=== PATIENT | female | born 1975 | race Caucasian/White ===

== ENCOUNTER 2019-01-05 11:59 | Inpatient (IN) | payer MEDICAID ==
[~2019-01-05] VITALS: Ht 152.4 cm; Wt 55.8 kg
--- NOTE | 2019-01-05 12:35 | NUR ---
URINE HCG (-), URINE DIP (+) BUT MAY INACCURATE D/T BLOOD STAINING/DISCOLORATION OF TEST STRIPS.
--- NOTE | 2019-01-05 12:40 | NUR ---
MSE BY DR. STAUFFER. PT C/O FEVER/BODY ACHES X 2 DAYS. PRODUCTIVE COUGH WHITE SPUTUM X 3 DAYS. PT C/O GENERALIZED ABD PAIN RADIATING TO BACK W/ NAUSEA SINCE MONDAY. PT W/ VAGINAL BLEEDING SINCE 12/21, WENT TO [facility] FOR SAME. PT C/O DIZZINESS X 3 DAYS. PT ADMITS TO OCCAS DYSURIA. PT IS PALE.
--- NOTE | 2019-01-05 12:55 | NUR ---
XRAY AT BEDSIDE
[2019-01-05 13:01] LABS: PLATELET COUNT 356 x10^3mcL (130-400)
[2019-01-05 13:03] LABS: RED CELL DISTRIBUTION WIDTH 21.1 % (11.5-14.5)
[2019-01-05 13:17] LABS: CALCIUM 7.8 mg/dL (8.5-10.1); CARBON DIOXIDE 20.6 mmol/L (21-32); CHLORIDE SERUM 101 mmol/L (98-107); CREATININE SERUM 0.8 mg/dL (0.6-1.0); GFR1 > 60 mL/min; GLUCOSE SERUM 128 mg/dL (74-106); POTASSIUM SERUM 4.7 mmol/L (3.5-5.1); SODIUM SERUM 134 mmol/L (136-145)
[2019-01-05 13:21] LABS: ALKALINE PHOSPHATASE 123 U/L (46-116); ALT/SGPT 46 U/L (14-59); AST/SGOT 40 U/L (15-37); BILIRUBIN TOTAL 1.34 mg/dL (0.20-1.00); TOTAL PROTEIN, SERUM 7.8 g/dL (6.4-8.2)
[2019-01-05 13:22] LABS: BAND NEUTROPHIL 6 % (0-10); BASOPHIL 0 % (0-2); MONOCYTE 5 % (0-7); SEGMENTED NEUTROPHILS 86 % (37-75)
[2019-01-05 13:23] LABS: PLATELET MORPHOLOGY PLATELETS NORMAL; rbc morphology (normal/abnorm) ABNORMAL (NORMAL)
[2019-01-05 14:14] LABS: microscopic required? YES; urine erythrocyte 3+ (NEGATIVE)
--- NOTE | 2019-01-05 14:19 | NUR ---
AMBULATE TO BATHROOM WITH STEADY GAIT
--- NOTE | 2019-01-05 15:11 | NUR ---
PT STS FEELS BETTER
--- NOTE | 2019-01-05 15:41 | NUR ---
STARTED ON IV ATB
[2019-01-05 16:45] LABS: FREE T4 1.49 ng/dL (0.76-1.46); T4(THYROXINE) 8.6 ug/dL (4.7-13.3)
--- NOTE | 2019-01-05 17:00 | NUR ---
TAKEN TO RADIOLOGY FOR CT
--- NOTE | 2019-01-05 18:08 | NUR ---
RECEIVED REPORT FROM ZENOBIA ROBERSON IN ED. AWAITING PATIENT ARRIVAL TO FLOOR.
--- NOTE | 2019-01-05 18:10 | NUR ---
PT ADMIT TO TELE ROOM B GAVE REPORT TO THELMA
--- NOTE | 2019-01-05 18:12 | NUR ---
ROPE TOW OPERATOR AT BEDSIDE FOR BLOOD DRAW
--- NOTE | 2019-01-05 18:24 | NUR ---
RECEIVED PT VIA Digital Lab FROM E/D, ACCOMPANIED BY RN, TRANSPORTER, AND PT'S , GEENA JULIAN. PT A/A/O X 4, CALM, COOPERATIVE. PT ABLE TO AMBULATE W/ SLOW, STEADY GAIT DESPITE HAVING GENERALIZED WEAKNESS. ON TELE # 16, NSR, HR 74, DENIES CHEST PAIN AT THIS TIME; C/O DIZZINESS. BP ARE FOLLOWS: STANDIN/50 (58); SITTIN/46 (56); LAYING FLAT: 79/42 (53); SEMI-CORDERO'S: 92/43 (53). LUNGS CTAB, CHEST RISING EVENLY, R/A, 96%, PRODUCTIVE COUGH W/ SCANT WHITE SPUTUM. ABD FIRM, DISTENDED, NORMOACTIVE BOWEL SOUNDS X 4 QUADS, LAST BM 01/05/19, FORMED, C/O INTERMITTENT BLQ SHARP PAIN 4/10, EXACERBATED BY COUGHING AND MOVEMENT, RELIEVED BY REST AND MEDICATION. BURNING ON URINATION W/ BLOOD-TINGED URINE. IV SITE LAC 20G, CDI. ORIENTED PT AND TO ROOM, BED CONTROLS, CALL LIGHT SYSTEM. SIDE RAILS UP X 2, BED IN LOW POSITION. WILL ENDORSE TO KAROL RENEE.
[2019-01-05 19:01] LABS: IRON 5 ug/dL (50-170); TOTAL IRON BINDING CAPACITY 220 ug/dL (250-450)
[2019-01-05 19:11] VITALS: BP 92/43
--- NOTE | 2019-01-05 19:40 | NUR ---
RECEIVED PT FROM DAY SHIFT RN. PT IS ALERT AND ORIENTED TO PERSON PLACE TIME AND SITUATION AND ABLE TO ABLE COMMANDS. FAMILY IS CURRENTLY AT THE BEDSIDE. PT COMPLAINING OF MINOR SOB. PLACED PT ON 2L NASAL CANULA. NO USE OF ACCESSORY MUSCLES OR LABORED BREATHING. PT STATES SHE HAS DIZZINESS. SCANT VAGINAL BLEEDING NOTED AT THIS TIME. GENERALIZED WEAKNESS. PT HAS A LAC IV 20G CDI AT THIS TIME. PT STATES SHE HAS ABD PAIN BUT DOES NOT WANT TO BE MEDICATED AND STATES THAT IS IS TOLERABLE AT THIS TIME. LATEST BP: 88/44 PAGED RESIDENT. PT MOVED TO 217 TO BE CLOSER TO THE NURSES STATION. SAFETY MEASURES IN PLACE. BED IN LOWEST POSITION. CALL LIGHT WITHIN REACH. WILL CONTINUE TO MONITOR PT.
--- NOTE | 2019-01-05 19:57 | NUR ---
REPORT GIVEN TO SILVER ROBERSON. ALL QUESTIONS AND CONCERNS ADDRESSED. ALL CARES ENDORSED.
--- NOTE | 2019-01-05 20:32 | NUR ---
WITNESSED CONSENT FOR BLOOD TRANSFUSION. RESIDENT SIGNED DOCUMENTS WELL. PT AWARE OF RISKS AND BENEFITS OF TRANSFUSION. ALL QUESTIONS ANSWERED. WILL INITIATE BLOOD TRANSFUSION. DR GIBBONS AWARE OF PT'S CURRENT BLOOD PRESSURE. NO NEW ORDERS AT THIS TIME.
--- NOTE | 2019-01-05 20:33 | NUR ---
WILL STAY WITH PT FOR THE NIGHT.
--- NOTE | 2019-01-05 22:00 | NUR ---
INITIATED AMPICILLIN 2GM VIA IVPB; INSTRUCTED PT/ TO NOTIFY NURSE IF PT STARTS FEELING ANY A/E. WILL ENDORSE TO KAROL SHEPPARD.
--- NOTE | 2019-01-05 22:53 | NUR ---
INITIATED BLOOD TRANSFUSION. PT TOLERATING WELL. INITIAL VITAL SINGS BP: 90/45 TEMP:99.2 HR: 96 RESP: 14 O2:100%
[2019-01-05 23:18] VITALS: BP 82/43
[2019-01-06] VITALS (7 sets, daily range): BP systolic 87–101; BP diastolic 40–60
--- NOTE | 2019-01-06 00:22 | NUR ---
PT TOLERATING BLOOD TRANSFUSION WELL. NO SIGNS OR SYMPTOMS OF TRANSFUSION REACTION. PT RESTING IN BED WITH EYES CLOSED. NO USE OF ACCESSORY MUSCLES OR LABORED BREATHING. WILL CONTINUE TO MONITOR PT.
--- NOTE | 2019-01-06 00:45 | NUR ---
CALLED PHARMACY. TOLD TO SKIP MIDNIGHT DOSDE OF AMPICILLIN.
--- NOTE | 2019-01-06 02:02 | NUR ---
SPOKE TO DR GIBBONS REGARDING PT BP. ORDERED TO HOLD LASIX.
--- NOTE | 2019-01-06 02:19 | NUR ---
PT FINISHED BLOOD TRANSFUSION. TOLERATED WELL. NO ADVERSE REACTIONS. WILL START ABOTHER UNIT PER ORDER.
--- NOTE | 2019-01-06 02:54 | NUR ---
SECOND UNIT OF BLOOD INITIATED. PT TOLERATING WELL. VITALS: BP: 89/47 HR:90 RESP:24 O2: 98 PT DENIES PAIN AT THIS TIME. ANTIBIOTIC THRERAPY RUNNING THROUGHOUT SEPARATE LINE.
--- NOTE | 2019-01-06 06:40 | NUR ---
PT COMPLAINT OF BEING EXTREMELY COLD. SHAKING VIGOROUSLY AND UNABLE TO GET BP READING. MULTIPLE RESIDENTS CAME INTO THE ROOM TO ASSESSS PT. INFORMED RESIDENTS ON PT'S TREND SINCE RECEIVING BLOOD. THIS IS THE FIRST TIME THE PT HAS COMPLAINED OF ABNORMAL SYMPTOMS SINCE RECEIVING BLOOD/ANTIBIOTIC THERAPY. PT LAST VITAL SIGNS SINCE RECEIVING BLOOD. BP: 112/55 HR: 114 RESP: 26 O2:98 TEMP: 99.8
--- NOTE | 2019-01-06 07:24 | NUR ---
PT CURRENTLY RECEIVING BREATHING TREATMENT AND BOLUS. PT STILL NOT FEELING WELL AT THIS TIME. POSSIBLE ORDERS FOR TRANSFER TO ICU.
[2019-01-06 08:44] LABS: CALCIUM 6.7 mg/dL (8.5-10.1); CARBON DIOXIDE 15.4 mmol/L (21-32); CHLORIDE SERUM 109 mmol/L (98-107); CREATININE SERUM 0.9 mg/dL (0.6-1.0); GFR1 > 60 mL/min; GLUCOSE SERUM 134 mg/dL (74-106); MAGNESIUM 1.8 mg/dL (1.8-2.4); PHOSPHOROUS 3.1 mg/dL (2.5-4.9); POTASSIUM SERUM 3.7 mmol/L (3.5-5.1); SODIUM SERUM 139 mmol/L (136-145)
[2019-01-06 08:46] LABS: BASOPHIL % 0 % (0-2); PLATELET COUNT 245 x10^3mcL (130-400); RED CELL DISTRIBUTION WIDTH 18.2 % (11.5-14.5)
--- NOTE | 2019-01-06 09:16 | NUR ---
AT 0815 - RECEIVED PATIENT TRANSFER FROM TELEMETRY UNIT. SETTLED IN ROOM, ORIENTED TO SURROUNDINGS AND CONNECTED TO MONITORING. DX OF SEPSIS, UTI AND ANEMIA. TRANSFERRED TO ICU DUE TO LOW BP. PATIENT IS AWAKE, ALERT AND ORIENTED TO PERSON, PALCE, TIME AND SITUATION. BP 101/47 MAP 70. RR 32. O2 SAT 100% ON 2L NC. SINUS TACHYCARDIA, RATE 112. DENIES PAIN AT THIS TIME. PATIENT ASSISTED TO BEDSIDE COMODE TO VOID AND THEN RETURNED TO BED. AT 0845 - PATIENT'S AT BEDSIDE. UPDATED ON EVENTS AND CURRENT PLAN OF CARE. IV INFUSION OF NS COMMENCED AT 100ML/HR. SCHEDULED DOSE OF AMPICILLIN IN PROGRESS.
--- NOTE | 2019-01-06 09:45 | NUR ---
SEEN BY DR ESTEVEZ AND MEDICAL TEAM DOCTORS. SPOKE WITH PATIENT AND ABOUT PLAN OF CARE.
--- NOTE | 2019-01-06 13:38 | NUR ---
PATIENT TOLERATING FOOD AND FLUIDS PO. VS REMAINS STABLE. REMAINS AFEBRILE. HAS BEEN USING BEDSIDE COMODE WITH ASSISTANCE FOR TOILET NEEDS.
--- NOTE | 2019-01-06 14:25 | NUR ---
PATIENT ASSISTED TO BEDSIDE COMMODE WITHOUT INCIDENT.
--- NOTE | 2019-01-06 14:47 | NUR ---
TELPHONEJonathan GONZALEZ AND REPORTED PATIENT'S C/O NUMBNESS/TINGLING AROUND MOUTH.
--- NOTE | 2019-01-06 15:03 | NUR ---
PATIENT HAD C/O "NIMBNESS/ PINS & NEEDLES" AROUND MOUTH AND FACE. SEEN BY AND EXAMINED BY LESTER. DR SPOKE WITH PATIENT AND FAMILY AND ANSWERED THEIR QUESTIONS. RECEIVED ORDER FOR DOSE OF BENADRYL.
--- NOTE | 2019-01-06 16:03 | NUR ---
AT 1525 - SEEN BY DR VIEIRA WHO SPOKE WITH PATIENT AND SON ABOUT PATIENT'S CONDITION AND PLAN OF CARE. PATIENT TO RECEIVE IV CALCIUM GLUCONATE FOR LOW CA LEVEL OF 6.7 AT 1537 - COMMENCED IV CALCIUM GLUCONATE 900 MG. TO INFUSE OVER 60 MIN. PATIENT WAS ALSO GIVEN BENADRYL 12.5 MG IVP PER EMAR. PATIENT GEENA, LEAVING. HAS TO GO TO WORK. CAN BE REACHED ON AT 1600 - PATIENT REMAINS AFEBRILE. VSS. BP 93/54 MAP 64. MONITOR SHOWING SINUS RHYTHM; RATE 80'S.
--- NOTE | 2019-01-06 19:04 | NUR ---
AT 1730 - C/O ABDOMINAL PAIN AND NAUSEA. MEDICATED WITH NORCO AND ZOFRAN PER EMAR. AT 1900 - FAMILY VISITING. PATIENT REMAINS AWAKE, ALERT AND ORIENTED. VSS MAP 60-70. REMAINS AFEBRILE AT THIS TIME. O2 SAT 98% ON ROOM AIR. RESPIRATIONS REGULAR BUT REMAINS TECHYPNIC WITHOUT SIFNIFICANT SOB. IV CURRENTLY INFUSING GENTAMICIN. FOR GENTAMICIN PEAK 30 MIN AFTER COMPLETION . PATIENT HAS BEEN TOLERATING FOOD AND FLUIDS OF REGULAR DIET. VOIDING IN BSC. 1 BM THIS AFTERNOON. WILL ENDORSE CARE TO NIGHT NURSE.
--- NOTE | 2019-01-06 20:00 | NUR ---
PT. AWAKE, ALERT, ORIENTED X4. DENIES HEADACHE OR DIZZINESS. BREATH SOUNDS CLEAR THROUGHOUT LUNG CALLES, BLL SLIGHTLY DIMINISHED. PT. ON RA, NO SOB NOTED. RESP. 24. ABD. DISTENDED, FIRM. BOWEL SOUNDS ACTIVE. DENIES ABD. PAIN AT THIS TIME, ONLY INTERMITTENT AT TIMES. DENIES NAUSEA. PEDAL PULSES STRONG CODEY. IVF NS INFUSING WELL TO RFA, SITE INTACT. IV ANTIBIOTIC HANGED AT THIS TIME, AMPICILLLIN. PERIPAD W/ SMALL AMOUNT OF SEROSANGUINOUS BLOOD. WILL MONITOR. CALL LIGHT WITHIN REACH.
--- NOTE | 2019-01-06 23:49 | NUR ---
DR. MONTANO MADE ROUNDS, SPOKE WITH PT. CLEOCIN AND AMPICILLIN ANTIBIOTIC IV DISCONTINUED AT THIS TIME.
[2019-01-07] VITALS: BP 93/54
--- NOTE | 2019-01-07 00:15 | NUR ---
PT. RESTING QUIETLY, MOSTLY DOZING. NO C/O PAIN THUS FAR. IVF INFUSING WELL. SITE REMAINS INTACT.NSR ON MONITOR, NO ECTOPIES. CALL LIGHT REMAINS WITHIN REACH.
[2019-01-07 04:00] VITALS: BP 94/57
--- NOTE | 2019-01-07 04:12 | NUR ---
PT.S' AT BEDSIDE. PT. ASLEEP AT THIS TIME. NO COMPLAINTS THROUGHOUT NIGHT. MINIMAL VAGINAL BLEEDING. BLOOD SEROSANGUINOUS IN COLOR. PER PAD CHANGED X2, DURING BSC USE. NO RESP. DISTRESS. PT. REMAINS ON RA. IVF NS INFUSING WELL, SITE INTACT. CALL LIGHT WITHIN REACH.
[2019-01-07 05:31] LABS: CALCIUM 7.8 mg/dL (8.5-10.1); CARBON DIOXIDE 18.3 mmol/L (21-32); CHLORIDE SERUM 108 mmol/L (98-107); CREATININE SERUM 0.8 mg/dL (0.6-1.0); GFR1 > 60 mL/min; GLUCOSE SERUM 101 mg/dL (74-106); PHOSPHOROUS 3.2 mg/dL (2.5-4.9); POTASSIUM SERUM 3.9 mmol/L (3.5-5.1); SODIUM SERUM 138 mmol/L (136-145)
[2019-01-07 05:33] LABS: BASOPHIL % 0.2 % (0-2); PLATELET COUNT 268 x10^3mcL (130-400)
[2019-01-07 05:34] LABS: RED CELL DISTRIBUTION WIDTH 18.7 % (11.5-14.5)
--- NOTE | 2019-01-07 05:52 | NUR ---
PT. ASSISTED OOB TO BSC COMMODE, BECAME A SOMEWHAT TIRED AND SOB, O2 SAT LEVEL DROPPED TO 91%. PT. ASSISTED BACK TO BED AND PLACED ON 2L/NC FOR RESP. SUPPORT. O2 LEVELS NOW 99% ON 2L/NC.
--- NOTE | 2019-01-07 07:22 | NUR ---
PT. CARE ENDORSED OVER TO INCOMING NURSE.
--- NOTE | 2019-01-07 07:40 | NUR ---
DR. OSBORNE AT BEDSIDE, ALL UPDATES GIVEN. PER DR. OSBORNE, HAVE PATIENT ON HUMIDIFIER AND ALSO START INCENTITIVE SPIROMETER TEACHING. NO OTHER ORDERS AT THIS TIME.
--- NOTE | 2019-01-07 07:41 | NUR ---
PATIENTS TEMPERATURE READING 101.8, TWO CONSECUTIVE READINGS. COOLING MEASURES APPLIED AND TYLENOL GIVEN, SEE EMAR.
[2019-01-07 07:46] VITALS: Ht 152.4 cm; Wt 55.8 kg
--- NOTE | 2019-01-07 07:50 | NUR ---
INCENTITIVE SPIROMETER TEACHING DONE AT THIS TIME. PATIENT DEMONSTRATED UNDERSTANDING. HUMIDIFIER APPLIED AT THIS TIME. AT BEDSIDE, INDICATED UNDERSTANDING. WILL CONTINUE TO MONITOR.
[2019-01-07 08:07] VITALS: BP 117/68
--- NOTE | 2019-01-07 09:05 | NUR ---
PATIENT VOIDED USING BEDSIDE COMMODE, 200 ML OF YELLOW URINE. NO PROBLEMS NOTED. WILL CONTINUE TO MONITOR.
[2019-01-07 11:13] VITALS: BP 103/57
--- NOTE | 2019-01-07 14:01 | NUR ---
Initial Nutrition Assessment: (IC09-A) KEVON WOODS, AJAY 43F Dx: Sepsis, UTI, Anemia PMHx: Fibroids PSHx: None Labs: BUN 6.0 L, Alb 3.0 L, Ca 7.8 L, Bili T 1.34 H, AST 40 H, Alk Phos 123 H, RBC 2.98 L, Hgb 8.0 L, HCT 25 L, PTT 30. 8 H Meds: Colace, Gentamicin, Zofran Diet: Regular PO intake since admission: 50-60% (per RN) Ht: 60in Wt: 123# BMI: 24 Bed scale: 147# IBW: 100# %IBW: 123% UBW: 128-130# Age: 43 Food Allergies: NKFA Skin: intact w/ no wounds Ady: 20 Edema: B/L radial pulses moderate, B/L pedal pulses weak, cap refill <2sec, pt warm/dry to touch, IV access noted to RFA GI: abd soft & flat, per night RN pt has not had BM, BS active x4 Last BM: 01/06, soft stool RD Note (01/07): Nursing trigger recieved for appears underweight/malnourished, N/V/D >3days. Visited pt bedside, requesting RN to translate for Prydeinig speaking. Pt states appetite is good, just did not really like the food she has received so far. Pt denies N/V/D at this time. Pt states UBW around 130#, BMI seems to be appropriate. Encourage Problem with N/V/D/C: No Problems with: Chewing: No Swallowing: No Current appetite: Good Recent wt change: No %wt change: No Vitamin/Supplement use: Centrum Special diet at home: Regular Physical activity: N/A Nutrition education given (specify specific nutrition education and handout given): None given at this time. Food-drug interactions? Education given? None given at this time. Estimated Nutritional Needs Based on current body weight (56 kg) Energy: 6658-4218 kcal/day (30-35 kcal/kg for sepsis) Protein: 80-101 g/day (1.2-1.5g/kg to preserve LBM) Fluid: 6690-1008 mL/day (1 mL/kcal) or per MD Nutrition Diagnosis: 1. Inadequate oral intake r/t pt reported not liking food on tray AEB PO intake 50-60% (per RN) 2. Altered nutrient-related lab values r/t sepsis, UTI , anemia AEB BUN 6.0 Alb 3.0, Bili T 1.34, AST 40, Alk Phos 123, RBC 2.98, Hgb 8.0 HCT 25 Intervention 1. Continue current diet order: Regular 2. Encourage better PO intake Monitor/Evaluate Goal: PO intake at least 75% of estimated needs Monitor: PO intake, Labs, GI function F/U in 2-3 days as high risk 01/09-01/10
--- NOTE | 2019-01-07 14:02 | NUR ---
Recommendations: 1. Continue current diet order: Regular 2. Encourage better PO intake
--- NOTE | 2019-01-07 14:29 | NUR ---
Discount pharmacy card and list to low cost medical clinics given to patient by Cong.
--- NOTE | 2019-01-07 16:26 | NUR ---
REPORT GIVEN TO KAROL LUCAS. PATIENT READY FOR TRANSFER, ALL QUESTIONS ANSWERED AT THIS TIME.
--- NOTE | 2019-01-07 17:22 | NUR ---
PATIENT TRANSFERRED TO [facility] AT THIS TIME. SHAYY RN AT BEDSIDE. PATIENT STABLE, NO PROBLEMS NOTED. ALL QUESTIONS ANSWERED.
--- NOTE | 2019-01-07 19:45 | NUR ---
PATIENT RECEIVED IN BED AWAKE,ALERT AND ORIENTED X4, SPEECH CLEAR, PORTUGUESE SPEAKING BUT ABLE TO SPEAK LITTLE PRYDEINIG TO COMMUNICATE NEEDS, DENIED HEADACHE NOR DIZZINESS. BREATHING EVEN AND UNLABORED BS WITH FINE CRACKLES UPPER LOBES AND DIMINISHED BASES, FOUND ON RA SAT 97%, STATES OCC PRODUCTIVEN COUGH YELLOW SPUTUM CLEARED BY COUGH, ENCOURAGED USE AND PERFORMANCE OF INCENTIVE SPIROMETRY, WAS ABLE TO DO 10X AT 500, ENCOURAGED TO DO MORE WHILE AWAKE. DENIED CHEST PAINS, MED/SURG PATIENT , [id number].COMPLAINED OF DULL ABDOMINAL PAIN RATED AT 4/10 HAD REQUEST FOR PAIN MEDS. MADE COMFORTABLE IN BED. VOIDING FREELY,DENIES DYSURIA. WITH GENERALIZED WEAKNESS, NEEDS ANTICIPATED, CALL LIGHT PLACED IN REACH. HEPLOCK TO RFA AND LAC PATENT AND INTACT, SECURED TAPE AND COVERED FLUSH SITE WITH DUALCAP. SAFETY PRECAUTIONS MAINTAINED. WILL CONTINUE TO MONITOR.
--- NOTE | 2019-01-07 19:58 | NUR ---
ENDORSED CARE TO KULWINDER ROBERSON.
--- NOTE | 2019-01-07 20:12 | NUR ---
COMPLAINED OF STOMACH PAIN AND DISCOMFORTS. PATIENT ALSO WITH LOW GRADE TEMP OF 100.4 COOLING MEASURES INITIATED, KEPT EXCESS BLANKETS OF AND AC TURNED ON. WAS RECENT HAD TYLENOL, NORCO GIVEN INSTEAD. WILL CHECK EFFECTIVENESS.
[2019-01-07 20:47] VITALS: BP 97/57
[2019-01-07 21:51] VITALS: BP 105/60
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
--- NOTE | 2019-01-08 00:14 | NUR ---
ROUNDS MADE PATIENT SLEEPING COMFORTABLY THIS TIME, NO DISTRESS. DECIDED TO STAY,CN MADE AWARE. WILL CONTINUE TO MONITOR.
--- NOTE | 2019-01-08 03:00 | NUR ---
PATIENT RESTING COMFORTABLY THIS TIME. WILL CONTINUE TO MONITOR.
[2019-01-08 03:12] LABS: AMPHETAMINE QUAL UR NONE DETECTED (See below)
--- NOTE | 2019-01-08 05:43 | NUR ---
PER RAIL CAR REPAIRMAN PATIENT TEMP 100.6 TYLENOL GIVEN AND COOLING MEASURES INITIATED. WILL RECHECKE.
[2019-01-08 05:48] VITALS: BP 97/60
--- NOTE | 2019-01-08 06:21 | NUR ---
PATIENT SLEPT OFF AND ON DURING THE SHIFT,HAD A TEMP START OF THE SHIFT AND EARLY THIS AM, COOLING MEASURES INITIATED. IV SITE NO SIGN OF INFILTRATION. AMBULATORY WITH STEADY GAIT. SCD WAS APPLIED LAST NIGHT BUT REQUESTED OFF THIS AM.SAFETY PRECAUTIONS MAINTAINED. WILL ENDORSE CONTINUITY OF CARE TO INCOMING NURSE.
[2019-01-08 07:07] LABS: PLATELET COUNT 311 x10^3mcL (130-400)
[2019-01-08 07:08] LABS: BASOPHIL % 0 % (0-2); RED CELL DISTRIBUTION WIDTH 19.2 % (11.5-14.5)
--- NOTE | 2019-01-08 07:34 | NUR ---
BEDSIDE HANDS OFF AND INTRODUCTION PERFORMED WITH INCOMING NURSE ALEJANDRO-KAROL. REPORTED TO FOLLOW UP ON LATEST TEMP POST TYLENOL FOR TEMP 100.6, ALSO REPORTED TO ASSIGNED KRIS COLON TO RE-CHECK TEMP.
--- NOTE | 2019-01-08 07:59 | NUR ---
A+OX4, SITTING AT EDGE OF BED EATING BREAKFAST, DENIES PAIN, MEDSURG, PULSES MODERATE AND EQUAL CODEY, NO EDEMA NOTED, LUNG SOUNDS DIMINISHED, TOLERATING RA, BOWEL SOUNDS ACTIVE, VOIDING FREELY, GENERALIZED WEAKNESS, AMBULATORY WITHOUT ASSISTANCE, SKIN INTACT, IV IN LAC AND RFA SALINE LOCKED, SITES WNL, CALL LIGHT WITHIN REACH.
[2019-01-08 08:08] LABS: CARBON DIOXIDE 20.4 mmol/L (21-32); CHLORIDE SERUM 104 mmol/L (98-107); CREATININE SERUM 0.8 mg/dL (0.6-1.0); GFR1 > 60 mL/min; GLUCOSE SERUM 132 mg/dL (74-106); PHOSPHOROUS 4.1 mg/dL (2.5-4.9); POTASSIUM SERUM 3.1 mmol/L (3.5-5.1); SODIUM SERUM 139 mmol/L (136-145)
[2019-01-08 09:58] VITALS: BP 92/49
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
--- NOTE | 2019-01-08 10:40 | NUR ---
AMBULATING AROUND UNIT INDEPENDENTLY WITH , NO RESPIRATORY DISTRESS NOTED.
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
--- NOTE | 2019-01-08 14:11 | NUR ---
IV IN RFA SWOLLEN AND ERYTHEMA, PT COMPLAINING OF PAIN AT IV SITE, IV REMOVED FROM RFA WITH CATHETER INTACT, CALL LIGHT WITHIN REACH.
--- NOTE | 2019-01-08 16:10 | NUR ---
PT GIVEN TYLENOL PO FOR TEMP 101.3, ICE PACKS PLACED ON FOREHEAD, AC ON HIGH, NO RESPRIATORY DISTRESS NOTED, CALL LIGHT WITHIN REACH, AT BEDSIDE.
--- NOTE | 2019-01-08 17:27 | NUR ---
PT RESTING IN BED, NO RESPIRATORY DISTRESS NOTED, DENIES PAIN, AT BEDSIDE, CALL LIGHT WITHIN REACH.
[2019-01-08 17:49] VITALS: BP 89/46
--- NOTE | 2019-01-08 18:53 | NUR ---
IV IN LAC LEAKING AND PAINFUL, REMOVED WITH CATHETER INTACT. NEW IV PLACED IN LFA 22G BY AME ROBERSON.
[2019-01-08 18:57] VITALS: BP 90/59
--- NOTE | 2019-01-08 19:30 | NUR ---
PT RECEIVED A/O X4, IRANIAN SPEAKING, ABLE TO MAKE NEEDS KNOWN. MED-SURG, DENIES CP/PRESSURE. PULSES PALPABLE, NO EDEMA PRESENT. BREATHING IS EVEN AND UNLABORED ON RA, NO RESP DISTRESS NOTED. ABD SOFT AND NONDISTENDED, DENIES N/V. VOIDS FREELY, BRP. MILD GENERALIZED WEAKNESS, AMBULATORY WITH STEADY GAIT. SKIN IS WARM AND DRY, INTACT. PT DENIES HAVING ANY PAIN AT THIS TIME. SL TO LFA, PATENT AND INTACT, SITE WNL. N OACUTE DISTRESS NOTED. SPOUSE AT BEDSIDE. BED IN LOWEST SETTING, SIDE RAILS UP X2, CALL LIGHT WITHIN REACH. WILL CONT TO MONITOR.
--- NOTE | 2019-01-08 19:38 | NUR ---
ENDORSED CARE TO ALEXIA ROBERSON.
[2019-01-08 21:07] VITALS: BP 90/54
--- NOTE | 2019-01-09 00:25 | NUR ---
PT RESTING IN BED WITH EYES CLOSED, BUT IS EASILY AROUSABLE. BREATHING IS EVEN AND UNLABORED, NO RESP DISTRESS NOTED. PT DENIES HAIVNG ANY PAIN AT THIS TIME. IV ABX ONGOING, SITE WNL. NO ACUTE DISTRESS NOTED. CALL LIGHT WITHIN REACH. WILL CONT TO MONITOR.
--- NOTE | 2019-01-09 01:25 | NUR ---
PT C/O 8/10 HEADACHE PAIN, PRN TYLENOL GIVEN ORDERED. NO ACUTE DISTRESS NOTED. WILL CONT TO MONITOR.
[2019-01-09 05:55] VITALS: BP 92/36
--- NOTE | 2019-01-09 06:15 | NUR ---
PT SLEPT WELL THROUGHOUT THE EVENING. BREATHING IS EVEN AND UNLABORED, NO RESP DISTRESS NOTED. PT DENIES HAVING ANY H/A OR PAIN, WITH GOOD RELIEF FROM TYLENOL. PT HAD NO FEVERS DURING THE NIGHT. NO ACUTE CHANGES ENCOUNTERED DURING SHIFT. ALL NEEDS MED AND ANTICIPATED. PT COMPLIANT WITH NURSING CARE. IV TO LFA, INTACT. CALL LIGHT WITHIN REACH. WILL ENDORSE CARE TO AM NURSE.
[2019-01-09 06:18] LABS: PLATELET COUNT 369 x10^3mcL (130-400)
[2019-01-09 06:27] LABS: CALCIUM 8.4 mg/dL (8.5-10.1); CARBON DIOXIDE 21.4 mmol/L (21-32); CHLORIDE SERUM 104 mmol/L (98-107); CREATININE SERUM 0.8 mg/dL (0.6-1.0); GFR1 > 60 mL/min; GLUCOSE SERUM 115 mg/dL (74-106); MAGNESIUM 2.5 mg/dL (1.8-2.4); PHOSPHOROUS 4.6 mg/dL (2.5-4.9); POTASSIUM SERUM 3.6 mmol/L (3.5-5.1); SODIUM SERUM 139 mmol/L (136-145)
[2019-01-09 06:50] LABS: BASOPHIL % 0 % (0-2); RED CELL DISTRIBUTION WIDTH 19.6 % (11.5-14.5)
--- NOTE | 2019-01-09 06:54 | NUR ---
RECEIVED CALL FROM LAB. PER PLAYGROUND SUPERVISOR, WBC INCREASED FROM 10.6 TO 13.7. WILL ENDORSE TO AM NURSE.
--- NOTE | 2019-01-09 07:11 | NUR ---
RECEIVED REPORT FROM ALEXIA ROBERSON. PATIENT RESTING COMFORTABLY IN BED. IV TO LT HAND IS PATENT AND INTACT. NO REDNESS OR PAIN. PT ON ROOM AIR. NO C/O SOB AND NO DISTRESS NOTED. ALL QUESTIONS AND CONCERNS ADDRESSED.
--- NOTE | 2019-01-09 07:31 | NUR ---
PT IN NO ACUTE DISTRESS. CONTINUITY OF CARE ENDORSED TO HARMONY RN. ALL QUESTIONS AND CONCERNS ADDRESSED.
--- NOTE | 2019-01-09 07:35 | NUR ---
MARBLEIZING MACHINE TENDER ZARA IN TO SEE AND ASSESS PATIENT. DISCUSSED THE IMPORTANCE OF TAKING STEROIDS PATIENT REFUSED STERIODS YESTERDAY. PT VERBALIZED UNDERSTANDING AND ASKED IF SHE WILL BE DISCHARGED TODAY. PT IS TO STAY TONIGHT WITH POSSIBLE DISCHARGE TOMORROW DEPENDING ON BREATHING EFFICIENCY.
[2019-01-09 09:14] VITALS: BP 97/58
--- NOTE | 2019-01-09 11:57 | NUR ---
PT REPORTS FEELING CHILLS. TEMP TAKEN AND IS 101.1 DR VERMA PAGED.
--- NOTE | 2019-01-09 11:59 | NUR ---
COOLING MEASURES APPLIED.
--- NOTE | 2019-01-09 13:50 | NUR ---
IN TO SEE PATIENT AND ASSESS NEEDS. PATIENT SLEEPING COMFORTABLY IN BED WITH AT BEDSIDE. ALL NEEDS MET.
[2019-01-09 13:59] VITALS: BP 97/58
[2019-01-09 17:29] VITALS: BP 98/57
--- NOTE | 2019-01-09 19:34 | NUR ---
REPORT GIVEN TO BRONWYN ROBERSON. PATIENT CURRENTLY WALKING IN THE [place] WITH . ALL NEEDS MET. ALL QUESTIONS AND CONCERNS ADDRESSED. ALL CARES ENDORSED.
--- NOTE | 2019-01-09 19:47 | NUR ---
RECEIVED PATIENT SITTING AT EDGE OF BED WITH AT BEDSIDE. DENIES PAIN AND DISCOMFORT AT THIS TIME. BREATHING EASY AND NONLABOR SATTING AT 97% RA. IV HEPLOCK TO LEFT HAND, FLUSHED WITH NS. WILL CONTINUE TO MONITOR. CALL LIGHT WITHIN REACH.
--- NOTE | 2019-01-09 21:10 | NUR ---
RESPIRATORY THERAPIST AT BEDSIDE FOR BREATHING TREATMENT.
[2019-01-09 21:42] VITALS: BP 99/55
--- NOTE | 2019-01-09 23:46 | NUR ---
APPEARS SLEEPING THIS TIME BREATHING EASY AND NONLABOR. WILL CONTINUE TO MONITOR.
--- NOTE | 2019-01-10 05:17 | NUR ---
SLEPT AT LONG INTERVALS, C/O ABDOMINAL PAIN AND PATIENT REQUEUSTED TYLENOL, REFUSED NORCO PER PATIENT IT'S TOO STRONG FOR HER. ALL NEEDS ATTENDED. HAD BM X2 LOOSE IN MODERATE AMOUNT PER PATIENT.
[2019-01-10 05:33] VITALS: BP 106/61
[2019-01-10 06:35] LABS: PLATELET COUNT 394 x10^3mcL (130-400)
[2019-01-10 06:39] LABS: BASOPHIL % 0 % (0-2); RED CELL DISTRIBUTION WIDTH 19.6 % (11.5-14.5)
[2019-01-10 06:43] LABS: CALCIUM 8.6 mg/dL (8.5-10.1); CARBON DIOXIDE 21.2 mmol/L (21-32); CHLORIDE SERUM 100 mmol/L (98-107); CREATININE SERUM 0.8 mg/dL (0.6-1.0); GFR1 > 60 mL/min; GLUCOSE SERUM 112 mg/dL (74-106); MAGNESIUM 2.3 mg/dL (1.8-2.4); PHOSPHOROUS 4.6 mg/dL (2.5-4.9); POTASSIUM SERUM 3.8 mmol/L (3.5-5.1); SODIUM SERUM 136 mmol/L (136-145)
--- NOTE | 2019-01-10 07:11 | NUR ---
RECEIVED REPORT FROM BRONWYN ROBERSON. PATIENT SLEEPING COMFORTABLY IN BED. IV TO LEFT HAND IS PATENT AND INTACT. NO REDNESS OR PAIN. PT ON ROOM AIR. NO DISTRESS NOTED. ALL QUESTIONS AND CONCERNS ADDRESSED.
--- NOTE | 2019-01-10 08:53 | NUR ---
RT IN TO SEE PATIENT FOR BREATHING TREATMENT.
[2019-01-10 10:02] VITALS: BP 97/64
--- NOTE | 2019-01-10 10:48 | NUR ---
PT C/O NAUSEA. ZOFRAN ADMINISTERED (SEE eMAR).
--- NOTE | 2019-01-10 11:57 | NUR ---
IN TO SEE PATIENT AND ADMINISTER MEDICATION (SEE eMAR). PT SLEEPING COMFORTABLY IN BED WITH AT BEDSIDE.
--- NOTE | 2019-01-10 16:11 | NUR ---
DR MONTANO IN TO SEE AND ASSESS PATIENT. UPON COMPLETION OF ASSESSMENT I ASSISTED PATIENT TO THE SHOWER.
[2019-01-10 17:32] VITALS: BP 99/52
--- NOTE | 2019-01-10 19:46 | NUR ---
RECEIVED PATIENT SITTING AT BEDSIDE WITH NO C/O ABDOMINAL PAIN THIS TIME, PATIENT MEDICATED EARLIER FOR PAIN BY AM SHIFT. RESPIRATION EVEN AND NONLABOR SATTING AT 99% RA. ABDOMEN SOFT AND NONTENDER WITH ACTIVE BS. IV TO LEFT HAND HEPLOCK FLUSHED WITH NS. FAMILY MEMBERS AT BEDSIDE. WILL CONTINUE TO MONITOR.
--- NOTE | 2019-01-10 19:47 | NUR ---
REPORT GIVEN TO BRONWYN ROBERSON. PATIENT RESTING COMFORTABLY IN BED WITH FAMILY AT BEDSIDE. ALL NEEDS MET. ALL QUESTIONS AND CONCERNS ADDRESSED. ALL CARES ENDORSED.
[2019-01-10 20:31] VITALS: BP 102/63
--- NOTE | 2019-01-10 23:52 | NUR ---
PATIENT STILL AWAKE REQUESTED TO CHECK HER TEMPERATUREAFEBRILE 98.8. WILL CONTINUE TO MONITOR.
--- NOTE | 2019-01-11 01:20 | NUR ---
AWAKE C/O ABDOMINAL PAIN, NORCO 1 TAB PO GIVEN PRESCRIBED. WILL CONTINUE TO MONITOR.
--- NOTE | 2019-01-11 01:27 | NUR ---
AWAKE THIS TIME TEMP CHECKED 101.3 AND PATIENT C/O ABDOMINAL PAIN, REFUSED TYLENOL, NORCO PO AND COOLING MEASURES GIVEN. WILL CONTIUE TO MONITOR.
--- NOTE | 2019-01-11 02:57 | NUR ---
BACK TO SLEEP AFTER PAIN MEDS WAS GIVEN. WILL CONTINUE TO MONITOR.
[2019-01-11 05:03] VITALS: BP 98/62
--- NOTE | 2019-01-11 05:03 | NUR ---
CHECKED AT INTERVALS FOR NEEDS AND SAFETY. AFEBRILE 99.1 AFTER COOLING MEASURES AND MEDS GIVEN. ALL NEEDS ATTENDED.
[2019-01-11 07:07] LABS: BASOPHIL % 0 % (0-2); PLATELET COUNT 450 x10^3mcL (130-400); RED CELL DISTRIBUTION WIDTH 19.2 % (11.5-14.5)
--- NOTE | 2019-01-11 07:20 | NUR ---
PT IS AAOX4. RESP EVEN AND UNLABORED. ON R/A. NO COUGH OR SOB. NORMAL S1S2 NOTED. ABDOMEN SOFT, TENDER, NONDISTENDED. BOWEL SOUNDS ACTIVE. DENIES N/V/D. SKIN CDI. NO EDEMA. PERIPHERAL PULSES PALPABLE. IV CATH TO LH PATENT, SITE WNL. NO S/S OF INFECTION NOTED. PT DENIES PAIN AT THIS TIME. CALL LIGHT WITHIN REACH. BED IN LOWEST POSITION.
[2019-01-11 07:22] LABS: CALCIUM 8.8 mg/dL (8.5-10.1); CARBON DIOXIDE 22.5 mmol/L (21-32); CHLORIDE SERUM 101 mmol/L (98-107); CREATININE SERUM 0.8 mg/dL (0.6-1.0); GFR1 > 60 mL/min; GLUCOSE SERUM 113 mg/dL (74-106); MAGNESIUM 2.3 mg/dL (1.8-2.4); PHOSPHOROUS 4.5 mg/dL (2.5-4.9); POTASSIUM SERUM 4.2 mmol/L (3.5-5.1); SODIUM SERUM 136 mmol/L (136-145)
[2019-01-11] MEDS ORDERED: FERROUS SULFAT325 M2 PO (08:28)
[2019-01-11] MEDS ORDERED: LEVAQUIN750 MG PO (08:29)
[2019-01-11] MEDS ORDERED: COLACE100 MG PO (08:30)
[2019-01-11 09:37] VITALS: BP 105/63
--- NOTE | 2019-01-11 09:50 | NUR ---
NORCO 7/325MG PO GIVEN FOR LEFT SIDED ABDOMINAL PAIN 12/12. EXTRA FLUIDS GIVEN AND ENCOURAGED. PT EDUCATED TO DRINK LOTS OF WATER WHEN TAKING NORCO. PT VERBALAZED UNDERSTANDING. PT IS SITTING UP IN CHAIR AT BEDSIDE. IN ROOM VISITING. CALL LIGHT WITHIN REACH.
--- NOTE | 2019-01-11 10:03 | NUR ---
DR. ESCOBAR MET WITH PT AND DISCUSSED POC. PT STILL HAS INTERMITTENT FEVER. A C/T OF ABDOMEN WILL BE RETAKEN. PT WILL STAY IN HOSPITAL UNTIL SOURCE OF INFECTION IS RESOLVED. PT AGREED WITH POC.
--- NOTE | 2019-01-11 11:50 | NUR ---
PT TAKEN FOR CT AB/PELVIS AND NOW BACK IN BED. RESP EVEN AND UNLABORED. NO S/S OF DISTRESS NOTED. PT DENIES PAIN. CALL LIGHT WITHIN REACH. BED IN LOWEST POSITION.
[2019-01-11 13:37] VITALS: BP 105/63
--- NOTE | 2019-01-11 15:21 | NUR ---
Follow-up Nutrition Assessment: (202-B) KEVON PEGGY, AJAY 43F Dx: Sepsis, UTI, Anemia PMHx: Fibroids Labs: BG 113 H, BUN 3.0 L, Alb 3.0 L, Bili T 1.34 H, AST 40 H, Alk Ph 123 H, Urine [place] Cloudy 3+, PTT 30.8 H Meds: Levaquin, Pepcid, Vibramycin, Zofran Diet: Regular PO Intake: ~58% Weights: 123# (01/05 @1911) 123# (01/05 @1221) I/Os: 430/780 (01/10) 680/0 (01/09) 1280/1100 (01/08) 4432/1450 (01/07) Skin: Ady: 21 Edema: none noted GI: Last BM: 01/09 RD Note (01/11): Pt Kiswahili speaking only. Visited pt bedside, states appetite is good, but does not always eat everything on her tray r/t does not like to eat meat or dairy foods very much, prefers vegetables much more. Noted pt usually eats most of her food at lunch, and about half during breakfast and dinner. Pt denies any pain at this time. Discussed ONS w/ pt, pt does not want to receive anything at this time. Estimated Nutritional Needs Based on current body weight (56 kg) Energy: 1216-3474 kcal/day (30-35 kcal/kg for sepsis) Protein: 80-101 g/day (1.2-1.5 g/kg to preserve LBM) Fluid: 3324-9224 mL/day (1 mL/kcal) or per MD Nutrition Diagnosis: 01/09: Inadequate oral intake r/t pt reported not liking food on tray AEB PO intake 50-60% (per RN) 01/09: Altered nutrient-related lab values r/t sepsis, UTI, anemia AEB BUN 6.0, Alb 3.0, Bili T 1.34, AST 40, Alk Phos 123, RBC 2.98, Hgb 8.0, HCT 25 01/11: Inadequate protein-energy intake r/t poor PO AEB 58% PO intake Intervention: 1. Consider adding to [id number] diet to Regular diet order. 2. Encourage better PO intake. 3. Spoke w/ Dr Sumner regarding recommendation(s), confirmed. Monitor/Evaluate: Goal: Have pt meet at least 75% of estimated needs Monitor: PO intake, Labs, GI function F/U in 3-5 days as moderate risk 01/14-01/16
--- NOTE | 2019-01-11 15:21 | NUR ---
Recommendations: 1. Consider adding to [id number] diet to Regular diet order. 2. Encourage better PO intake. 3. Spoke w/ Dr Sumner regarding recommendation(s), confirmed.
--- NOTE | 2019-01-11 16:04 | NUR ---
ZOFRAN 4 MG IVP GIVEN FOR NAUSEA AND VOMITING. PT ASSISTED WITH GOWN CHANGE. PT DENIES PAIN. RESP EVEN AND UNLABORED. WILL CONTINUE TO MONITOR. CALL LIGHT WITHIN REACH.
--- NOTE | 2019-01-11 17:31 | NUR ---
NORCO 7.5/325MG PO GIVEN FOR THROBBING ABDOMINAL PAIN 11/12. EXTRA FLUIDS GIVEN. RESP EVEN AND UNLABORED, NO RESP DISTRESS NOTED. DUE MEDS GIVEN AND TOLERATED WELL. PT DENIES N/V AT THIS TIME. CALL LIGHT WITHIN REACH.
[2019-01-11 17:36] VITALS: BP 99/62
--- NOTE | 2019-01-11 18:38 | NUR ---
PT IS SITTING UP AT BEDSIDE AAOX4. RESP EVEN AND UNLABORED. NO DISTRESS NOTED. DENIES PAIN AT THIS TIME. IV CATH N/S LOCKED TO , SITE WNL. WILL ENDORSE ALL CARE TO NOC RN.
[2019-01-11 19:21] VITALS: BP 100/56
--- NOTE | 2019-01-11 19:35 | NUR ---
RECEIVED REPORT FROM AM NURSE.PT SITTING ON CHAIR. PT AAOX4, FOLLOWS COMMANDS. ABLE TO MAKE NEEDS KNOWN. MED-SURG. DENIES CP/PRESSURE AT THIS TIME. PALPABLE PULSES TO ALL EXTREMETIES. NO EDEMA NOTED. LUNG SOUNDS CTA ON RA. BREATHING EVEN AND UNLBAORED. NO ACUTE DISTRES NOTED. ABD SOFT AND NONDISTENDED. ACTIVE BS X4 QUAD. DENIES N/V AT THIS TIME. VOIDS FREELY BRP. C/O SCANT VAGINAL BLEEDING, STATES ITS DUE TO THE FIBROIDS AND HAS BEEN HAVING VAGINAL BLEEDING FOR A FEW MONTHS NOW. WILL MONITOR FOR ACUTE BLEEDING. MILD GENERALIZED WEKNESS. AMBULATORY. IV SL TO LH FLUSHING WELL. SITE FREE FROM REDNESS AND SWELLING. BED AT LOWEST SETTING. SIDE RAILS X2 UP. CALL LIGHT WITHING REACH. WILL CONTINUE TO MONITOR.
--- NOTE | 2019-01-12 01:29 | NUR ---
PT C/O 01/12 ABD PAIN. DESCRIBED ACHING. MEDICATED WITH PRN NORCO PER AUG. PT STATES PAIN GETTING BETTER. WILL CONTINUE TO MONITOR.
--- NOTE | 2019-01-12 02:07 | NUR ---
PT LAYING DOWN IN BED WITH EYES CLOSED. BREATHING EVEN AND UNLABORED ON RA. NO ACUTE DISTRESS NOTED. WILL CONTINUE TO MONITOR.
[2019-01-12 04:27] VITALS: BP 113/59
--- NOTE | 2019-01-12 05:37 | NUR ---
PT SLEPT WELL THROGHOUT THE NIGHT. BREATHING EVEN AND UNLABORED ON RA. NO ACUTE DISTRESS NOTED. IV SL TO LH FLUSHING WELL. SITE FREE FROM RENDESS AND SWELLING. ALL NEEDS ASSESSED AND ATTENDED TO. BED AT LOWEST SETTING. SIDE RAILS X2 UP. CALL LIGHT WITHING REACH. WILL ENDORSE CARE TO AM NURSE.
--- NOTE | 2019-01-12 07:32 | NUR ---
PT C/O 01/12 ABD PAIN. MEDICATED WITH PRN NORCO PER AUG. WILL ENDORSE CARE TO AM NURSE.
--- NOTE | 2019-01-12 07:38 | NUR ---
A+OX4, NO RESPRIATORY DISTRESS NOTED, COMPLAINING OF ABD PAIN, NORCO PO GIVEN BY NOC RN, MEDSURG, PULSES MODERATE AND EQUAL CODEY, NO EDEMA NOTED, LUNG SOUNDS CTA, TOELRATING RA, BOWEL SOUNDS ACTIVE, VOIDING FREELY, AMBULATORY WITHOUT ASSISTANCE, SKIN INTACT, IV IN L HAND SALINE LOCKED, SITE WNL.
[2019-01-12 08:00] LABS: BASOPHIL % 0.2 % (0-2)
[2019-01-12 08:02] LABS: RED CELL DISTRIBUTION WIDTH 19.1 % (11.5-14.5)
[2019-01-12 08:03] LABS: PLATELET COUNT 620 x10^3mcL (130-400)
[2019-01-12 08:16] LABS: CALCIUM 9.2 mg/dL (8.5-10.1); CHLORIDE SERUM 96 mmol/L (98-107); CREATININE SERUM 0.9 mg/dL (0.6-1.0); GFR1 > 60 mL/min; GLUCOSE SERUM 113 mg/dL (74-106); SODIUM SERUM 135 mmol/L (136-145)
[2019-01-12 09:26] VITALS: BP 105/57
--- NOTE | 2019-01-12 09:28 | NUR ---
PT AMBULATING AROUND ROOM INDEPENDENTLY, DENIES PAIN, NO RESPRIATORY DISTRESS NOTED, CALL LIGHT WITHIN REACH.
[2019-01-12 10:51] LABS: C REACTIVE PROTEIN 43.3 mg/dL (<=0.9)
--- NOTE | 2019-01-12 12:06 | NUR ---
NEW IV PLACED IN R HAND [address] SCAN. CT SCAN COMPLETE. PT SITTING IN CHAIR AT BEDSIDE, NO RESPIRATORY DISTRESS NOTED, COMPLAINING OF ABD PAIN, NORCO PO GIVEN, CALL LIGHT WITHIN REACH.
[2019-01-12 12:59] LABS: UA SPECIFIC GRAVITY <=1.005 (1.005-1.035); microscopic required? YES; urine erythrocyte 3+ (NEGATIVE)
--- NOTE | 2019-01-12 13:41 | NUR ---
PT SITTING AT CHAIR AT BEDSIDE, STATES SHE ATTMEPTED TO EAT LUNCH AND BEGAN FEELING NAUSEA, ZOFRAN IVP GIVEN, NO RESPIRATORY DISTRESS NOTED, FRIEND AT BEDSIDE, CALL LIGHT WITHIN REACH.
--- NOTE | 2019-01-12 16:10 | NUR ---
PT SITTING AT EDGE OF BED COMPLAINING OF 8/10 ABD PAIN, NORCO PO GIVEN, NO RESPRIATORY DISTRESS NOTED, FAMILY AT BEDSIDE, CALL LIGHT WITHIN REACH.
[2019-01-12 17:54] VITALS: BP 102/64
--- NOTE | 2019-01-12 18:20 | NUR ---
PT RESTING IN BED, NO RESPIRATORY DISTRESS NOTED, STATES PAIN IS TOLERABLE AT THIS TIME, CALL LIGHT WITHIN REACH. FAMILY AT BEDSIDE.
--- NOTE | 2019-01-12 18:26 | NUR ---
PT COMPLAINING OF NAUSEA, ZOFRAN IVP GIVEN, FAMILY AT BEDSIDE, CALL LIGHT WITHIN REACH.
--- NOTE | 2019-01-12 19:25 | NUR ---
PT RECEIVED A/O X4, TRINIDADIAN SPEAKING, ABLE TO MAKE NEEDS KNOWN. MED-SURG, DENIES CP/PRESSURE. PULSES PALPABLE, NO EDEMA PRESENT. BREATHING IS EVEN AND UNLABORED ON RA, NO RESP DISTRESS NOTED. ABD SOFT AND NONDISTENDED, DENIES N/V. VOIDS FREELY, BRP. MILD GENERALIZED WEAKNESS, AMBULATORY WITH STEADY GAIT. SKIN IS WARM AND DRY, INTACT. PT DENIES HAVING ANY PAIN AT THIS TIME. SL TO LH AND RH, PATENT AND INTACT, SITES WNL. N0 ACUTE DISTRESS NOTED. BED IN LOWEST SETTING, SIDE RAILS UP X2, CALL LIGHT WITHIN REACH. WILL CONT TO MONITOR.
--- NOTE | 2019-01-12 19:27 | NUR ---
ENDORSED CARE TO ALEXIA ROBERSON.
[2019-01-12 20:32] VITALS: BP 97/64
--- NOTE | 2019-01-12 20:45 | NUR ---
PT C/O 01/12 ABD PAIN, PRN NORCO GIVEN ORDERED. NO ACUTE DISTRESS NOTED. CALL LIGHT WITHIN REACH. WILL CONT TO MONITOR.
--- NOTE | 2019-01-12 20:46 | NUR ---
DR MONTANO MADE AWARE OF CT ABD AND PELVIS RESULTS. NO NEW ORDERS AT THIS TIME.
--- NOTE | 2019-01-13 02:50 | NUR ---
PT C/O 11/12 ABD PAIN, PRN NORCO GIVEN ORDERED. NO ACUTE DISTRESS NOTED. CALL LIGHT WITHIN REACH. WILL CONT TO MONITOR.
--- NOTE | 2019-01-13 04:18 | NUR ---
PT AWAKE AND AMBULATING AROUND UNIT WITH STEADY GAIT. NO ACUTE DISTRESS NOTED. WILL CONT TO MONITOR.
--- NOTE | 2019-01-13 05:03 | NUR ---
PT SLEPT AT INTERVALS THROUGHOUT THE EVENING. BREATHING IS EVEN AND UNLABORED, NO RESP DISTRESS NOTED. PT DENIES HAVING ANY PAIN AT THIS TIME. SL TO LH AND RH, PATENT AND INTACT, SITE WNL. NO ACUTE CHANGES ENCOUNTERED DURING SHIFT. ALL NEEDS MET AND ANTICIPATED. CALL LIGHT WITHIN REACH. WILL ENDORSE CARE TO AM NURSE.
[2019-01-13 05:28] VITALS: BP 105/61
[2019-01-13 06:55] LABS: CALCIUM 8.7 mg/dL (8.5-10.1); CARBON DIOXIDE 23.2 mmol/L (21-32); CHLORIDE SERUM 97 mmol/L (98-107); CREATININE SERUM 0.9 mg/dL (0.6-1.0); GFR1 > 60 mL/min; GLUCOSE SERUM 127 mg/dL (74-106); MAGNESIUM 2.3 mg/dL (1.8-2.4); PHOSPHOROUS 4.5 mg/dL (2.5-4.9); POTASSIUM SERUM 3.8 mmol/L (3.5-5.1); SODIUM SERUM 132 mmol/L (136-145)
[2019-01-13 07:24] LABS: BASOPHIL % 0 % (0-2); RED CELL DISTRIBUTION WIDTH 19.4 % (11.5-14.5)
[2019-01-13 07:26] LABS: PLATELET COUNT 609 x10^3mcL (130-400)
--- NOTE | 2019-01-13 07:26 | NUR ---
PT IN NO ACUTE DISTRESS. CONTINUITY OF CARE ENDORSED TO DIEGO ROBERSON. ALL QUESTIONS AND CONCERNS ADDRESSED.
--- NOTE | 2019-01-13 07:30 | NUR ---
RECEIVED PT FROM TUBE TRAILER FILLER RN. Torres/OX4. MED SURG. DENIES CHEST PAIN/PRESSURE. RESPIRATIONS EQUAL AND UNLABORED ON RA. DENIES SOB AT THIS TIME. PT C/O ABDOMINAL PAIN TO MUQ 09/12. PT AMBULATES PER BRP. STEADY GAIT. IV TO RH SALINE LOCKED. NO REDNESS OR SWELLING NOTED. IV TO LH SALINE LOCKED. NO REDNESS OR SWELLING NOTED. WILL CONTINUE TO MONITOR. CALL LIGHT IN REACH. BED IN LOWEST POSITION.
[2019-01-13 08:00] VITALS: BP 93/55
--- NOTE | 2019-01-13 09:12 | NUR ---
PT SITTING UP IN CHAIR AT BEDSIDE. PT C/O PAIN TO MUQ ABDOMEN 10/10 [place]. MEDICATED PER EMAR. PT C/O NAUSEA. MEDICATED PER EMAR. PT STATES "I WANT TO WAIT TO TAKE MY PILLS. I AM IN TOO MUCH PAIN" IV ANTIBIOTICS INFUSING ORDERED TO RH. NO REDNESS OR SWELLING NOTED. WILL CONTINUE TO MONITOR. CALL LIGHT IN REACH. BED IN LOWEST POSITION.
--- NOTE | 2019-01-13 10:18 | NUR ---
PT SITTING UP AT BEDSIDE. NO ACUTE RESP DISTRESS NOTED ON RA. PT STATES PAIN TO ABDOMEN HAS IMPROVED 4/10 SINCE RECEIVING NORCO. PT STATES NAUSEA HAS IMPROVED WELL. IV ANTIBITICS INFUSING TO RH. GIVEN PO MEDS. TOLERATED WELL. WILL CONTINUE TO MONITOR. CALL LIGHT IN REACH. BED IN LOWEST POSITION.
--- NOTE | 2019-01-13 12:04 | NUR ---
PT SITTING UP AT BEDSIDE. NO ACUTE RESP DISTRESS NOTED ON RA. PT STATES HE PAIN TO ABDOMEN IS TOLERABLE AT THIS TIME. PT STATES SHE WILL LET ME KNOW WHEN PAIN IS NO LONGER TOLERABLE. IV SALINE LOCKED TO RH. NO REDNESS OR SWELLING NOTED. PT DENIES ANY NAUSEA AT THIS TIME. AT BEDSIDE. WOULD LIKE TO SPEAK WITH DR. VERMA. DR. VERMA MADE AWARE. PER DR. VERMA HE WILL GO AND SPEAK WITH PT AND . WILL CONTINUE TO MONITOR. CALL LIGHT IN REACH. BED IN LOWEST POSITION.
--- NOTE | 2019-01-13 14:30 | NUR ---
PT SITTING UP IN BED. NO ACUTE RESP DISTRESS NOTED ON RA. PT STATES PAIN HAS IMPROVED SINCE RECEIVING PAIN MEDICATION. IV FLUSHED WELL. IV ANTIBIOTIC INFUSING ORDERED. WILL CONTINUE TO MONITOR. CALL LIGHT IN REACH. BED IN LOWEST POSITION.
[2019-01-13 16:14] VITALS: BP 102/61
--- NOTE | 2019-01-13 17:27 | NUR ---
SPOKE WITH DR. VERMA REGARDING PT PAIN MEDICATION. PER DR. VERMA WILL REORDER NORCO.
--- NOTE | 2019-01-13 18:16 | NUR ---
CALLED THE CALL PHONE TO GET RENEWAL FOR [place]. PER DR. WEATHERS WILL TELL DR. VERMA TO PUT IN ORDER.
--- NOTE | 2019-01-13 18:37 | NUR ---
PT SITTING UP AT BEDSIDE. NO ACUTE RESP DISTRESS NOTED ON RA. PT C/O ABDOMINAL PAIN TO MUQ RADIATING TO LLQ SHARP 11/12. MEDICATED PER EMAR. GIVEN PO MEDS. TOLERATED WELL. PT STATES SHE HAD A MEDIUM SIZED BM FORMED AND SOFT. NOTED SCANT BLOOD TO PAD, PT GIVEN NEW PAD. IV SALINE LOCKED TO LFA. NO REDNESS OR SWELLING NOTED. FAMILY AT BEDSIDE. WILL ENDORSE TO NET SOFTWARE ENGINEER RN. CALL LIGHT IN REACH. BED IN LOWEST POSITION.
[2019-01-13 19:24] VITALS: BP 105/63
--- NOTE | 2019-01-13 19:30 | NUR ---
PATIENT RECEIVED VIA BEDSIDE HANDS OFF IN BED SLEEPING EASILY AWAKEN, PATIENT IS ORIENTED X4, SPEECH CLEAR,DENIES WETZEL NOR DIZZINESS,DIVEHI SPEAKING BUT ABLE TO COMMUNICATE IN LITTLE [place] AND ALSO GESTURING. FAMILY AT BEDSIDE. BREATHING EVEN AND UNLABORED,BREATH SOUND DIMINISHED BASES, ENCOURAGED TO PERFORM INCENTIVE SPIROMETRY EXERCISE WHILE AWAKE 10X, ABLE TO PERFORM AT THIS TIME AT 1500.COMPLAINED OF DULL CONSTANT ABDOMINAL PAIN MAINLY LOCATED AND POINTED AT EPIGASTRIC AREA, RATED AT 4/10 THIS TIME JUST RECENTLY MEDICATED BY AM NURSE. SKIN IS WARM TO TOUCH, ORAL TEMP 100.9, COOLING MEASURES INITIATED-REMOVED EXCESS BLANKET AND APPLIED ICE PACKS TO ARMPIT AND FOREHEAD, AC TURN ON. HEPLOCK TO LFA INTACT, TAPE SECURED, DUAL CAP APPLIED. PATIENT STATED FEELING WEAK AND EASILY FATIGUE, AMBULATORY WITH STEADY GAIT, ABLE TO PARTICIPATE IN SIMPLE ADL'S. VOIDING FREELY, OCC HAVE SCANT AMT OF VAGINAL BLEED PER PATIENT. SAFETY PRECAUTIONS MAINTAINED. WILL CONTINUE TO MONITOR.
--- NOTE | 2019-01-13 20:50 | NUR ---
SCHEDULED MEDS ADMINISTERED, PATIENT INFORMED WITH HELP OF A FAMILY THAT TRNASLATED IN [place] OF ACTIONS AND PURPOSE OF MEDS. TYLENOL 650MG PO GIVEN FOR OTBO292.9 ORALLY,COOLING MEASURES IN PROGRESS. INFORMED ABOUT SCHEDULED TEST AND LABS FOR01/14, UPDATED WHITE BOARD.
--- NOTE | 2019-01-13 22:25 | NUR ---
HAND OVER REPORT GIVEN TO RENETTA FOR CONTINUED CARE.
--- NOTE | 2019-01-13 22:26 | NUR ---
PT RECEIVED FROM KULWINDER ROBERSON. PT AWAKE AND ALERT, ABLE TO MAKE NEEDS KNOWN. PT DENIES ANY PAIN AT THIS TIME. NO ACUTE DISTRESS NOTED. CALL LIGHT WITHIN REACH. WILL CONT TO MONITOR.
--- NOTE | 2019-01-14 02:01 | NUR ---
PT C/O 12/12 ABD PAIN, PRN NORCO GIVEN ORDERED. NO ACUTE DISTRESS NOTED. CALL LIGHT WITHIN REACH. WILL CONT TO MONITOR.
[2019-01-14 05:56] VITALS: BP 93/49
[2019-01-14 06:27] LABS: CALCIUM 8.4 mg/dL (8.5-10.1); CARBON DIOXIDE 24.9 mmol/L (21-32); CHLORIDE SERUM 97 mmol/L (98-107); CREATININE SERUM 0.8 mg/dL (0.6-1.0); GFR1 > 60 mL/min; GLUCOSE SERUM 125 mg/dL (74-106); POTASSIUM SERUM 3.7 mmol/L (3.5-5.1); SODIUM SERUM 133 mmol/L (136-145)
--- NOTE | 2019-01-14 06:30 | NUR ---
PT SLEPT AT INTERVALS THROUGHOUT THE EVENING. BREATHING IS EVEN AND UNLABORED, NO RESP DISTRESS NOTED. PT DENIES HAVING ANY PAIN AT THIS TIME. IV ABX INFUSING WELL TO LW, PATENT AND INTACT, SITE WNL. NO ACUTE CHANGES ENCOUNTERED DURING SHIFT. ALL NEEDS MET AND ANTICIPATED. CALL LIGHT WITHIN REACH. WILL ENDORSE CARE TO AM NURSE.
[2019-01-14 07:01] LABS: RED CELL DISTRIBUTION WIDTH 19.1 % (11.5-14.5)
--- NOTE | 2019-01-14 07:06 | NUR ---
RECEIVED REPORT FROM ALEXIA ROBERSON. PATIENT RESTING COMFORTABLY IN BED. SALINE LOC TO LEFT WRIST IS PATENT AND INTACT. NO REDNESS OR PAIN. PATIENT ON ROOM AIR. NO C/O SOB AND NO DISTRESS NOTED. ALL QUESTIONS AND CONCERNS ADDRESSED.
[2019-01-14 07:53] LABS: PLATELET COUNT 646 x10^3mcL (130-400)
[2019-01-14 09:19] VITALS: BP 109/67
--- NOTE | 2019-01-14 09:23 | NUR ---
PATIENT C/O SEVERE ABDOMINAL PAIN. DR ORDERED MORPHINE X1 PATIENT REPORTED REDUCED PAIN IMMEDIATELYFROM 02/12 TO 11/12. WILL MONITOR.
--- NOTE | 2019-01-14 10:06 | NUR ---
ROUNDS: DR ESCOBAR, RESIDENTS, PRIMARY RN, AND AT BEDSIDE. DISCUSSED PLAN TO TRANSFER TO [facility] AFTER PLACEMENT IS FOUND. CASE MANAGEMENT TO SEEK PLACEMENT. DISCUSSED PAIN CONTROL WITH NORCO AND MORPHINE AND MEDICATION ADJUSMENT. CONTINUE ANTIBIOTICS. PATIENT AND VERBALIZED UNDERSTANDING AND ALL QUESTIONS AND CONCERNS WERE ADDRESSED.
[2019-01-14 10:54] LABS: ATYPICAL LYMPH 0 %; BAND NEUTROPHIL 1 % (0-10); BASOPHIL 0 % (0-2); MONOCYTE 7 % (0-7); SEGMENTED NEUTROPHILS 90 % (37-75); rbc morphology (normal/abnorm) ABNORMAL (NORMAL)
[2019-01-14 10:55] LABS: PLATELET MORPHOLOGY PLATELETS INCREASED
[2019-01-14 12:50] VITALS: BP 109/67
--- NOTE | 2019-01-14 14:11 | NUR ---
IN TO ATTEMPT IV INSERTIONFOR CONTINUED ANTIBIOTICS. INSERTION WAS UNSUCCESSFUL. MIKY TO ATTEMPT.
--- NOTE | 2019-01-14 16:56 | NUR ---
3 MORE UNSUCCESSFUL ATTEMPTS AT IV INSERTION. WILL REATTEMPT LATER. PATIENT RESTING IN BED.
[2019-01-14 17:16] VITALS: BP 105/61
--- NOTE | 2019-01-14 19:23 | NUR ---
REPORT GIVEN TO JUDE ROBERSON. PATIENT RESTING COMFORTABLY IN BED. IV TO LT WRIST IS PATENT AND INTACT. NO REDNESS OR PAIN. PT ON ROOM AIR. NO C/O SOB AND NO DISTRESS NOTED. ALL QUESTIONS AND CONCERNS ADDRESSED.
--- NOTE | 2019-01-14 20:00 | NUR ---
PT RECIEVED AAO FAMILY AT THE BEDSIDE,REG RESP NO SOB V/S STABLE,IV INFUSING WELL WITH THE SITE PATENT AND INTACT,BED IN THE LOW POSITION AND LOCKED,KEPT CLEAN AND DRY TO TOUCH,BED IN THE LOW POSITION AND LOCKED,CALL LIGHT EASY REACHED AND WILL CONTNUE TO MONITOR.
[2019-01-14 20:26] VITALS: BP 105/55
--- NOTE | 2019-01-14 20:59 | NUR ---
PT WITH C/O OF ABDO PAIN CRAMPING IN NATURE PATIENT WAS MEDICATED WITH NORCO 1 TAB PO ORDER AND WILL CONTINUE TO MONITOR.
[2019-01-15 05:20] VITALS: BP 101/60
--- NOTE | 2019-01-15 06:08 | NUR ---
PT HAD A RESTING NIGHT NO CHANGE AT THIS TIME,WILL CONTINUE TO MONITOR.
[2019-01-15 06:45] LABS: CALCIUM 8.5 mg/dL (8.5-10.1); CARBON DIOXIDE 23.2 mmol/L (21-32); CHLORIDE SERUM 99 mmol/L (98-107); CREATININE SERUM 0.7 mg/dL (0.6-1.0); GFR1 > 60 mL/min; GLUCOSE SERUM 109 mg/dL (74-106); POTASSIUM SERUM 3.6 mmol/L (3.5-5.1); SODIUM SERUM 135 mmol/L (136-145)
--- NOTE | 2019-01-15 07:26 | NUR ---
PT RECIEVED RESTING AT THIS TIME,HL TO THE [facility] WITH THE SITE PATENT AND INTACT,V/S STABLE,KEPT CLEAN AND DRY TO TOUCH,BED IN THE LOW POSITION AND LOCKED,CALL LIGHT EASY REACHED AND WILL CONTINUE TO MONITOR.
[2019-01-15 07:41] LABS: RED CELL DISTRIBUTION WIDTH 19.3 % (11.5-14.5)
--- NOTE | 2019-01-15 07:41 | NUR ---
PT STILL WITH SPOTTING OF BLOOD VAGINALLY WILL CONTINUE TO MONITOR
[2019-01-15 07:42] LABS: PLATELET COUNT 732 x10^3mcL (130-400)
[2019-01-15 09:22] VITALS: BP 102/59
[2019-01-15 10:10] LABS: CALCITONIN < 2.0 pg/mL (0.0-5.0)
[2019-01-15 10:23] LABS: BAND NEUTROPHIL 1 % (0-10); BASOPHIL 0 % (0-2); MONOCYTE 5 % (0-7); SEGMENTED NEUTROPHILS 88 % (37-75); rbc morphology (normal/abnorm) ABNORMAL (NORMAL)
[2019-01-15 10:24] LABS: PLATELET MORPHOLOGY PLATELETS INCREASED; ovalocyte/elliptocyte 1+
--- NOTE | 2019-01-15 11:00 | NUR ---
RECEIVED BEDSIDE REPORT FROM KAROL ROQUE; PT A/A/O X 4, CALM, COOPERATIVE, BY BEDSIDE. NO ACUTE RESPIRATORY DISTRESS NOTED; C/O INTERMITTENT CRAMPING ABD PAIN /. WILL CONTINUE TO MONITOR.
--- NOTE | 2019-01-15 11:37 | NUR ---
PT C/O INTERMITTENT CRAMPING ABD PAIN; GIVEN MORPHINE 2MG IVP; PT SITTING AT BEDSIDE ON CHAIR AT THIS TIME W/ . WILL CONTINUE TO MONITOR.
--- NOTE | 2019-01-15 14:36 | NUR ---
PT C/O INTERMITTENT CRAMPING ABD PAIN 10; GIVEN NORCO 1 TAB PO; PT REPOSITIONED FOR COMFORT AND SHADES DRAWN DOWN. BY BEDSIDE. WILL CONTINUE TO MONITOR.
[2019-01-15 15:00] LABS: BASOPHIL % 0.2 % (0-2); RED CELL DISTRIBUTION WIDTH 19.1 % (11.5-14.5)
[2019-01-15 15:04] LABS: PLATELET COUNT 873 x10^3mcL (130-400)
--- NOTE | 2019-01-15 15:35 | NUR ---
RECEIVED REPORT FROM LAB RE: PLT [id number]; REPORTED TO DR VERMA PT'S CBC; NO NEW ORDER GIVEN AT THIS TIME. PT IN BED AT THIS TIME, NO ACUTE RESPIRATORY DISTRESS, PAIN, OR DISCOMFORT; BY BEDSIDE. WILL CONTINUE TO MONITOR.
[2019-01-15 17:27] VITALS: BP 103/68
--- NOTE | 2019-01-15 18:10 | NUR ---
PT SITTING ON CHAIR BY BEDSIDE, TALKING TO FAMILY MEMBERS IN THE ROOM. PT REMAINS A/A/O X 4, CALM, COOPERATIVE. NO RESPIRATORY DISTRESS, PAIN, OR DISCOMFORT NOTED. WILL ENDORSE TO NOC SHIFT.
--- NOTE | 2019-01-15 19:44 | NUR ---
RECEIVED PT FROM DAY SHIFT RN. PT IS A&O X4 ABLE TO FOLLOW COMMANDS AND IS MONTSERRATIAN SPEAKING. FAMILY CURRENTLY AT THE BEDSIDE. PT DENIES CHEST PAIN OR SHORTNESS OF BREATH ON ROOM AIR. THERE ARE NO USE OF ACCESSORY MUSCLES OR LABORED BREATHING ON ASSESSMENT. PT IS MED SURG. PT COMPLAIING OF MINOR ABD PAIN AT THIS TIME. ACHING IN THE RIGHT UPPER QUADRANT. WILL PROVIDE COMFORT MEASURES AND MEDICATE PER ORDER. PT VOIDS FREELY. THERE IS SCANT VAGINAL BLEEDING NOTED BY PT IN HER PERINEAL PAD. DRY DARK RED. PT IS AMBULATORY INDEPENDENTLY. BUT ENCOURAGED PT TO CALL FOR ASSISTANCE IF NEEDED TO AMBULATE. THERE IS A LEFT WRIST 24G IV THAT IS CLEAN DRY AND INTACT AT THIS TIME. SAFETY MEASURES ARE IN PLACE. CALL LIGHT WITHIN REACH. WILL CONTINUE TO MONITOR.
[2019-01-15 20:33] VITALS: BP 108/66
--- NOTE | 2019-01-16 02:28 | NUR ---
PT RESTING IN BED WITH EYES CLOSED. NO DISTRESS NOTED. NO USE OF ACCESSORY MUSCLES OR LABORED BREATHING, NO FACIAL GRIMMACING. WILL MONITOR.
[2019-01-16 05:09] VITALS: BP 104/53
[2019-01-16 06:21] LABS: CALCIUM 8.6 mg/dL (8.5-10.1); CARBON DIOXIDE 25.8 mmol/L (21-32); CHLORIDE SERUM 98 mmol/L (98-107); CREATININE SERUM 0.8 mg/dL (0.6-1.0); GFR1 > 60 mL/min; GLUCOSE SERUM 135 mg/dL (74-106); POTASSIUM SERUM 3.5 mmol/L (3.5-5.1); SODIUM SERUM 134 mmol/L (136-145)
[2019-01-16 06:42] LABS: RED CELL DISTRIBUTION WIDTH 18.9 % (11.5-14.5)
[2019-01-16 06:44] LABS: BASOPHIL % 0 % (0-2)
[2019-01-16 06:46] LABS: PLATELET COUNT 799 x10^3mcL (130-400)
--- NOTE | 2019-01-16 06:48 | NUR ---
RECEIVED CRITICAL PLATELET VALUE FROM LAB:[id number] TRENDING DOWN FROM 873 YESTERDAY.
[2019-01-16 07:25] VITALS: BP 114/76
--- NOTE | 2019-01-16 07:52 | NUR ---
RECEIVED PATIENT FROM KAROL SHEPPARD. PATIENT IN BED AT THIS TIME, HAS MILD ABDOMINAL PAIN. PRN PAIN CONTROL ADMINISTERED DURING PM SHIFT. WILL CONTINUE ONCE SCHEDULE ALLOWS. SPOKE WITH PATIENT ABOUT PLAN OF CARE TODAY, PATIENT VERBALIZES UNDERSTANDING. CALL LIGHT IN REACH.
--- NOTE | 2019-01-16 10:37 | NUR ---
DR ESTEVEZ AND CARE TEAM IN TO SPEAK WITH PATIENT AND . STATES THEY WILL SEND HER HOME TODAY AND THAT PATIENT HAS TO FOLLOWUP W ONCOLOGY OUTPATIENT, AND WILL BE SENT HOME W HOME ANTIBIOTICS. ALL QUESTIONS ANSWERED, WILL AWAIT DISCHARGE INSTRUCTIONS. CALL LIGHT IN REACH.
--- NOTE | 2019-01-16 12:24 | NUR ---
SPOKE WITH SEBASTIEN IN CASE MANAGEMENT ABOUT PATIENT, STATED SHE WILL SPEAK WITH PATIENT AND PATIENT PLAN AND ALSO HAVE CM LILA IN TO TRANSLATE. INSTRUCTED THAT SHE WILL PROVIDE PATIENT W CD OF IMAGES AND RADIOGRAPHS FOR FU APPOINTMENT AT OUTPATIENT ONCOLOGY.
--- NOTE | 2019-01-16 13:03 | NUR ---
Follow-up Nutrition Assessment: /B AJAY DAVIDSON MR Dx: Sepsis, UTI, Anemia PMHx: Fibroids Labs: (01/16) NA 134L, BG 135H, WBC 13.4H, HGB 7.3L Meds: Colace, ferrous sulfate, morphine, norco, pepcid, vancomycin, zofran Diet: Regular (lacto-ovo vegetarian) PO Intake: (01/16) breakfast 60%, (01/15) breakfast, lunch 50%, dinner 20% Weights: (01/05) 123#, (01/16) 127.3# Skin: intact Ady: 21 I/Os: (01/16) 805/1 (804) Edema: none GI: Last BM: 01/13 RDN Visit (01/16): Patient was alert and oriented but only spoke Khmer, was sitting by the bedside and he helped with translation. Pt. said that she has some nausea but no vomiting or diarrhea. Per progress note (01/15), CT Scan with IV contrast shows cystic adnexal mass which may represent malignancy and also possible malignant degeneration of uterine fibroids. Dr. Palmer EDI PROGRAMMER recommended transfer the patient to another hospital that has EDI PROGRAMMER Oncology. Estimated Nutritional Needs based on current body weight 56 kg Energy: 5613-9013 kcal/d (30-35 kcal/kg) - sepsis Protein: 80-101 g/d (1.2-1.5 g/kg)- preserve LBM, possible malignancy Fluid: (1ml/kcal) or per MD Nutrition Diagnosis 1. Inadequate oral intake related to poor appetite, nausea as evidenced by documented PO intake 50-60%. (ongoing) 2. Altered nutrition related lab values related to sepsis, UTI, anemia as evidenced by WBC 13.4H, BG 135H. (ongoing) Intervention 1. Recommend continuing Regular (lacto-ovo vegetarian). 2. Recommend Ensure High Protein BID. Discussed recommendations with Dr. Jonathan Browne. said that pt. is leaving right now. Monitor/Evaluate Goal: Have pt meet at least 75% of estimated needs Monitor: PO intake, Labs, GI function F/U in moderate days as risk 01/19-
--- NOTE | 2019-01-16 13:03 | NUR ---
1. Recommend continuing Regular (lacto-ovo vegetarian). 2. Recommend Ensure High Protein BID. Discussed recommendations with Dr. Castillo Sayed. said that pt. is leaving right now.
[2019-01-16] MEDS ORDERED: NORCO1 TA2 PO (13:06)
[2019-01-16 13:51] VITALS: BP 102/65
--- NOTE | 2019-01-16 14:00 | NUR ---
PLACED PT BACK ON FULL SUPPORT AT THIS TIME DUE TO BEING FATIGUE.
--- NOTE | 2019-01-16 15:11 | NUR ---
DR POND SAYED IN TO SPEAK WITH PATIENT ABOUT DISCHARGE PLAN. INFORMED PATIENT AND TO FU WITH PCP, FU W DR MURGUIA CEILING INSULATION BLOWER, AND TO FU AT CLINIC AT [facility]. [facility] INFORMATION GIVEN TO PATIENT, WORK LETTER REQUESTED BY PATIENT AND PROVIDED. DISCHARGE PACKET, CD WITH PATIENT IMAGES, AND PRESCRIPTIONS GIVEN TO PATIENT. WAS ALSO TOLD TO FU W THIS HOSPITAL TOMORROW FOR FURTHER NORCO PO PRESCRIPTION, PATIENT GEENA TO BE REACHED AT [phone]. PATIENT AND VERBALIZE UNDERSTANDING. IV CATHETER REMOVED AND INTACT. PATIENT AND FAMILY W DISCHARGE PACKET AND BELONGINGS ESCORTED DOWNSTAIRS WITH THIS NURSE. SIGNATURES OBTAINED.
--- NOTE | 2019-01-16 15:17 | NUR ---
CASE MANAGE PACKET, ([facility] REFERRAL) ALSO GIVEN TO PATIENT GEENA.
== END 2019-01-16 15:21 | disposition home or self-care (01) | DRG 720 ==
LOC: ED 11:59 → MU 15:28 → DU 15:28 → IC 15:28 → DU 18:22 → IC 01-06 07:47 → MU 01-06 07:55 → IC 01-06 08:06 → MU 01-07 17:24
PROVIDERS: Emergency Medicine; Internal Medicine; ADMIT Internal Medicine
DX: A41.9 Sepsis, unspecified organism (principal); N17.0 Acute kidney failure with tubular necrosis; R65.21 Severe sepsis with septic shock; J69.0 Pneumonitis due to inhalation of food and vomit; N39.0 Urinary tract infection, site not specified; D62 Acute posthemorrhagic anemia; K21.9 Gastro-esophageal reflux disease without esophagitis; B96.29 Other Escherichia coli [E. coli] as the cause of diseases classified elsewhere; D25.9 Leiomyoma of uterus, unspecified; T80.92XA Unspecified transfusion reaction, initial encounter; Z68.24 Body mass index [BMI] 24.0-24.9, adult
CPT/HCPCS: 82308; 84439; 94150; 97116-GP; G0378; J0290; J0610; J0696; J1200; J1580; J1956; J2185; J2270; J2405; J2543; J3370; J3490; J7030; J7040; J7050; J7060; J7620; P9016; Q0092; Q0163; Q9967

== ENCOUNTER 2019-04-23 17:24 | Emergency (ER) | payer OTHER, MEDICAID ==
[~2019-04-23] VITALS: Ht 154.9 cm; Wt 53.1 kg
[~2019-04-23 17:24] MED LIST: COLACE100 MG PO; FERROUS SULFAT325 M2 PO; LEVAQUIN750 MG PO; NORCO1 TA2 PO
[2019-04-23 20:27] VITALS: BP 101/40
== END 2019-04-23 20:27 | disposition home or self-care (01) ==
LOC: ED 17:24
DX: S13.4XXA Sprain of ligaments of cervical spine, initial encounter (principal); V43.52XA Car driver injured in collision with other type car in traffic accident, initial encounter; Y93.I9 Activity, other involving external motion; Y92.413 State road as the place of occurrence of the external cause; Y99.8 Other external cause status
CPT/HCPCS: J1885